=== PATIENT | female | born 1965 | race Caucasian/White ===

== ENCOUNTER → 2017-03-13 | Outpatient (CLI) | payer OTHER | LOC: FIMAGING 10:04 | PROVIDERS: ATTEND Obstetrics & Gynecology | DX: Z12.31 Encounter for screening mammogram for malignant neoplasm of breast (principal); Z80.3 Family history of malignant neoplasm of breast | CPT/HCPCS: G0202 ==

== ENCOUNTER 2017-03-26 10:36 | Day surgery (SDC) | payer OTHER ==
--- NOTE | 2017-03-21 18:55 | GHP ---
[f rep st] PREOP HISTORY AND PHYSICAL Surgery to be performed on 03/26/2017 at 12 p.m. SURGERY TO BE PERFORMED: Hysteroscopy, dilation and curettage, and polypectomy. PREOPERATIVE DIAGNOSIS: Postmenopausal bleeding and endometrial polyp. HISTORY OF PRESENT ILLNESS: Gale is a 52-year-old 1, para 0-0-1-0, who has been on hormone replacement therapy since she achieved menopause in 2012. She began having episodes of postmen[place] bleeding the end of 2013 and the in beginning of 2014 with different patches and different regim ens. She underwent an endometrial biopsy in January of 2016 because of recurrent episodes of postmeno pausal bleeding and a thickened endometrium on ultrasound. It was 0.6 cm. That endometrial biopsy was benign and showed a fragment of an endometrial polyp. No malignancy. The patient's bleeding improved on decreased doses of hormone replacement therapy. She was stable a nd Minivelle 0.5 and 100 mg of Prometrium and was doing much better. However, she had another episo de of postmenopausal bleeding this February. Repeat ultrasound on March 17 revealed, again, a thickened endometrium which was 0.65 cm and an area at the fundus that appeared to have a vascular stalk, nalini ured 9 x 5 x 10 mm. Likely, endometrial polyp. Ovaries were fine. Because this is a recurrent epi sode of postmenopausal bleeding on hormone replacement therapy, endometrium is thickened, and she michelle d some possible polyp fragments on her endometrial biopsy, decision was made for definitive therapy with a hysteroscopy, D and C, and polypectomy and the patient is admitted in agreement. PAST MEDICAL HISTORY: Significant for hypothyroidism. She has been on Synthroid since age 44. Als o, depression. She is controlled on sertraline. PAST SURGICAL HISTORY: No significant past medical history. She had some skin biopsies and moles r emoved. PAST OBSTETRICAL HISTORY: She had 1 elective termination at age 20 and that was her only . She has no history of abnormal Paps and denies any history of STDs. Her most recent Pap was in 2015 and it was negative. CURRENT MEDICATIONS: Include Activella 0.5 and 0.1 mg daily, Premarin vaginal cream 2 times a week, Synthroid 50 mcg daily, sertraline 50 mg daily, and probiotics. ALLERGIES: She has no known drug allergies. SOCIAL HISTORY: She is . She works as a private massage therapist. She denies tobacco. Ad mits to a glass a wine daily. No drugs. Moderate caffeine and moderate exercise. SIGNIFICANT FAMILY HISTORY: Sister had breast cancer at age 48. BRACA negative. Another sister wh o is bipolar. Grandfather had heart disease. Uncle had thyroid cancer. No other significant family history. REVIEW OF SYSTEMS: The patient has been having increased pelvic discomfort, cramping, and generaliz ed swelling and discomfort with exercise. Unable to have intercourse. Other than that, she has a n egative review of systems. No systemic symptoms, general symptoms, respiratory, cardiovascular, abd ominal, pelvic, psych, or endocrine. OBJECTIVE: VITAL SIGNS: Today, her blood pressure is 104/60, weight is 149 pounds. GENERAL: She is a well-developed, well-nourished white female, in no acute distress. LUNGS: Clear to auscultati on bilaterally. HEART: Regular rate and rhythm. No murmur. ABDOMEN: Soft, nontender, nondistend ed. Normal bowel sounds. PELVIC: Atrophic external genitalia and nulliparous cervix. Uterus is a nteverted, anteflexed, mobile, nontender. She has no bleeding from the os. ASSESSMENT/PLAN: 52-year-old 1, para 0-0-1-0, with recurrent episode of postmenopausal blee ding. Ultrasound suggestive of endometrial polyp. For hysteroscopy dilation and curettage, and mukesh ypectomy. The patient was consented for the procedure. She understood the risks and benefits. The risks including bleeding, infection, damage to the uterus including possible risk of perforation, d amage to other organs, perforation were to occur, risk of needing additional procedures and incomple te treatment of the bleeding and electrolyte imbalances. She understood these risks and benefits, agreed to proceed. /[id number]/MODL
[2017-03-26] MEDS ORDERED: LIDOCAINE 1% 2 ML INJ ONE (10:50)
[2017-03-26] MEDS ORDERED: SILVER NITRATE APPLICATOR 1 APPL TP ONE (10:56)
[2017-03-26] MEDS ORDERED: LR 1,000 ML IV ONE (11:27)
[2017-03-26] MEDS ORDERED: LIDOCAINE 1% 5 ML SDV ID PRN (11:27)
[2017-03-26] MEDS ORDERED: MIDAZOLAM 2 MG/2 ML VIAL IVP ONE (11:46)
--- NOTE | 2017-03-26 11:48 | PDANEPAE ---
ANE History of Present Illness for hysterscopy, D and C ANE Past Medical History - Cardiovascular History Hx Hypertension: No Hx Arrhythmias: No Hx Chest Pain: No Hx Coronary Artery / Peripheral Vascular Disease: No Hx CHF / Valvular Disease: No Hx Palpitations: No - Pulmonary History Hx COPD: No Hx Asthma/Reactive Airway Disease: Yes Hx Recent Upper Respiratory Infection: No Hx Oxygen in Use at Home: No - Neurologic History Hx Cerebrovascular Accident: No Hx Seizures: No Hx Dementia: No - Endocrine History Hx Diabetes: No Hypothyroid: Yes - Renal History Hx Renal Disorders: No - Liver History Hx Hepatic Disorders: No - Neurological & Psychiatric Hx Hx Neurological and Psychiatric Disorders: Yes - Cancer History Hx Cancer: No - Congenital Disorder History Hx Congenital Disorders: No - GI History Hx Gastrointestinal Disorders: No - Chronic Pain History Chronic Pain: No ANE Review of Systems - Exercise capacity METS (RN): 5 METS ANE Patient History - Allergies Allergies/Adverse Reactions: merlin Allergy (Verified 03/24/17 12:56) - Home Medications Home Medications: Calcium + D3 ER Tablet DAILY 11/30/15 [Last Taken 03/24/17] Levothyroxine DAILY06 11/30/15 [Last Taken 03/26/17 07:38] Sertraline HCl DAILY06 11/30/15 [Last Taken 03/26/17 05:45] Estradiol DAILY06 03/24/17 [Last Taken 03/26/17 05:45] Herbal Drugs DAILY 03/24/17 [Last Taken 03/24/17] - NPO status NPO Since - Liquids (Date): 03/26/17 NPO Since - Liquids (Time): 05:45 NPO Since - Solids (Date): 03/25/17 NPO Since - Solids (Time): 19:00 - Smoking Hx Smoking Status: Former smoker ANE Labs/Vital Signs - Vital Signs Blood Pressure: 128/79 Heart Rate: 52 Respiratory Rate: 12 O2 Sat (%): 97 Height: 158.75 cm Weight: 65.771 kg ANE Physical Exam - Airway Mallampati Score: Class 1 Mouth exam: normal dental/mouth exam - Pulmonary Pulmonary: no respiratory distress - Cardiovascular Cardiovascular: regular rate and rhythym - ASA Status ASA Status: II ANE Anesthesia Plan Anesthesia Plan: GA w LMA
--- NOTE | 2017-03-26 12:01 | PDHPUP ---
History & Physical Update H&P update statement: This history and physical update is based on an assessment of the patient which was completed after admission or registration (within 24 hours), but prior to the surgery/procedure. H&P update: H&P reviewed & patient examined, no change in patient's condition since H&P completed
[2017-03-26] MEDS ORDERED: DEXAMETHASONE 4 MG/ML VIAL ONE (12:05)
[2017-03-26] MEDS ORDERED: fentaNYL 100 MCG/2 ML INJ ONE (12:05)
[2017-03-26] MEDS ORDERED: ONDANSETRON 4 MG/2 ML VIAL ONE (12:05)
[2017-03-26] MEDS ORDERED: LIDOCAINE 2% 5 ML SDV ONE (12:06)
[2017-03-26] MEDS ORDERED: PROPOFOL 200 MG/20 ML VIAL ONE (12:06)
[2017-03-26] MEDS ORDERED: NALOXONE HCL 0.4 MG/ML INJ IVP PRN (12:29)
[2017-03-26] MEDS ORDERED: PROMETHAZINE HCL 25 MG/ML INJ IVP PRN (12:29)
[2017-03-26] MEDS ORDERED: MEPERIDINE 25 MG/ML SYR IVP PRN (12:29)
[2017-03-26] MEDS ORDERED: OXYCODONE/APAP 5/325 TAB PO PRN (12:29)
[2017-03-26] MEDS ORDERED: ONDANSETRON 4 MG/2 ML VIAL IVP PRN (12:29)
[2017-03-26] MEDS ORDERED: fentaNYL 100 MCG/2 ML INJ IVP PRN (12:29)
[2017-03-26] MEDS ORDERED: DEXAMETHASONE 4 MG/ML VIAL IVP PRN (12:29)
[2017-03-26] MEDS ORDERED: ACETAMINOPHEN 500 MG TAB PO PRN (12:29)
[2017-03-26] MEDS ORDERED: HYDROmorphONE/DILAUDID 1 MG/ML SYR IVP PRN (12:29)
[2017-03-26] MEDS ORDERED: HYDROCODONE/APAP 5/325 TAB PO PRN (12:29)
--- NOTE | 2017-03-26 12:29 | POSTANESTH ---
Post Anesthetic Evaluation Cardiovascular Status: Normal, Stable, Similar to Pre-Op Cond Respiratory Status: Normal, Stable, Similar to Pre-op Cond. Level of Consciousness/Mental Status: Can Participate in Eval, Moderately Sleepy Pain Control: Adequate, Prn Tx Ordered Nausea/Vomiting Control: Adequate, Prn Tx Ordered Complications Possibly Related to Anesthesia: None Noted (doing well)
[2017-03-26] MEDS ORDERED: KETOROLAC 30 MG/1 ML SDV ONE (12:38)
--- NOTE | 2017-03-26 12:51 | POSTOPPROG ---
Post Op Note Date of Operation: 03/26/17 Surgeon: Dasha Amezquita Anesthesiologist: Jorge Escudero Anesthesia: GET(General Endotracheal) Pre-op Diagnosis: post menopausal bleeding and endometrial polyp Post-op Diagnosis: same Indication: endometrial polyp Procedure: Hysteroscopy dilation and currettage, polypectomy with morcelator Findings: multiple endometrial polyps Inf/Abcess present in the surg proc area at time of surgery?: No Depth: Organ Space EBL: Minimal Total fluids administered: 800 Complications: none Specimen(s): endometrial polyps and endometrial curettings
[2017-03-26 13:42] VITALS: TEMP 97.5
[2017-03-26 13:46] VITALS: PULSE 55
[2017-03-26 14:25] VITALS: BP 127/75; RESP 15; O2SAT 97
--- NOTE | 2017-03-26 15:20 | GOP ---
[f rep st] OPERATIVE REPORT DATE OF OPERATION: 03/26/2017 SURGEON: Dasha Amezquita MD ANESTHESIA: General anesthesia. ANESTHESIOLOGIST: Jorge Luque MD. PREOPERATIVE DIAGNOSIS: Postmenopausal bleeding and endometrial polyps. POSTOPERATIVE DIAGNOSIS: Postmenopausal bleeding and endometrial polyps. PROCEDURE PERFORMED: Hysteroscopy, dilation and curettage, polypectomy with morcellator. FINDINGS: SPECIMENS: Endometrial curettings and endometrial polyp. ESTIMATED BLOOD LOSS: For the procedure was less than 10 cc. INDICATIONS: The patient is a 52-year-old, 1, para 0-0-1-0, who has been on hormone replace ment therapy since she achieved menopause in 2012. She began having episodes of postmenopausal blee ding in 2013 and 2014 with different regimens of hormone replacement therapy. She had an endometria l biopsy in January 2016 because of recurrent postmenopausal bleeding and a thickened endometrium on u ltrasound at 0.6. That was benign and showed fragments of a polyp. No malignancy. The patient's b leeding improved on just adjusted doses of hormone therapy and she was stable until late February. Repea t ultrasound on March 17 revealed, again, a thickened endometrium at 0.65 cm and the area at the fun dus appeared to have a vascular stalk that measured 9 x 5 x 10 mm, likely endometrial polyp. Becaus e of recurrent postmenopausal bleeding and the endometrial polyp, decision was made to proceed with hysteroscopy, D and C, and polypectomy to remove and give definitive treatment for this polyp, and t o get pathology. Patient understood the risks and benefits of the procedure, the risks including bl eeding, infection, damage to uterus including possible risk of perforation, damage to other organs i f perforation were to occur, electrolyte imbalances, need for additional procedures, incomplete semaj tment of all of her postmenopausal bleeding, and need for additional procedures. She understood the se risks and benefits, agreed to proceed. DESCRIPTION OF PROCEDURE: The patient was taken to the operating room, where she was placed under g eneral anesthesia without difficulty and she was prepped in the dorsal lithotomy position. After a WHO time-out was performed, an open-sided speculum was placed in the vagina, and a Edwards tenaculum was used to grasp the anterior lip of the cervix. The uterus sounded to 8 cm. The cervix was then progressively dilated with Brito dilators to a #6. The TruClear hysteroscope was then gently advanc ed from the cervix to the fundus, and visualization was performed. At the fundal cavity and in the right cornual region of the uterus there were 3 distinct endometrial polyps visualized. No other ab normalities were seen in the cavity and both tubal ostia were visualized. The polyp blade morcellat or was placed through the operative channel of the hysteroscope and window lock was performed. Poly pectomy was performed under direct visualization with suction to facilitate pathology. The polyp wa s removed. The hysteroscope was then removed. Sharp curettage was then performed in a clockwise fa shion until a gritty texture was palpated throughout the entire uterine contents, and there was no b leeding. Good hemostasis was obtained. The tenaculum was removed. There was no bleeding. The spe culum was removed and the fluid deficit was 90 cc of saline. The patient tolerated the procedure we ll. Sponge, lap, needle, and instrument counts correct x2. Patient went to the recovery room in go od condition. FLUID REPLACEMENT: 800 cc. Again, hysteroscopic deficit was 90 cc. /[id number]/MODL
== END 2017-03-26 14:38 | disposition home or self-care (01) ==
LOC: FSGY 10:36
PROVIDERS: ATTEND Obstetrics & Gynecology
DX: N95.0 Postmenopausal bleeding (principal); N84.0 Polyp of corpus uteri
CPT/HCPCS: 58558; C1782; J1100; J1885; J2250; J2405; J2704; J3010

== ENCOUNTER → 2018-03-31 | Outpatient (CLI) | payer OTHER | LOC: FIMAGING 11:01 | PROVIDERS: ATTEND Obstetrics & Gynecology | DX: Z12.31 Encounter for screening mammogram for malignant neoplasm of breast (principal); Z80.3 Family history of malignant neoplasm of breast ==

== ENCOUNTER → 2018-07-14 | Outpatient (CLI) | payer OTHER | LOC: FIMAGING 08:39 | PROVIDERS: ATTEND Family Medicine Sports Medicine | DX: Z13.820 Encounter for screening for osteoporosis (principal); M85.89 Other specified disorders of bone density and structure, multiple sites; E03.9 Hypothyroidism, unspecified; Z78.0 Asymptomatic menopausal state; Z79.890 Hormone replacement therapy ==

== ENCOUNTER → 2019-04-07 | Outpatient (CLI) | payer OTHER | LOC: FIMAGING 15:39 ==